=== PATIENT | male | born 1975 | race Caucasian/White ===

== ENCOUNTER 2019-02-08 13:12 | Emergency (ER) | payer OTHER, SELFPAY | END 2019-02-08 14:25 | disposition home or self-care (01) | PROVIDERS: Emergency Provider Emergency Medicine; Family Provider Nurse Practitioner Family; Visit Provider Emergency Medicine | DX: S61.011A Laceration without foreign body of right thumb without damage to nail, initial encounter (principal); W26.8XXA Contact with other sharp object(s), not elsewhere classified, initial encounter; Y92.009 Unspecified place in unspecified non-institutional (private) residence as the place of occurrence of the external cause; Z23 Encounter for immunization; I10 Essential (primary) hypertension | CPT/HCPCS: 12001; 90471; 90715; 96372; 99282; J2001 ==

== ENCOUNTER 2020-04-21 12:00 | Outpatient (CLI) | payer OTHER, SELFPAY | END 2020-04-21 12:01 | disposition home or self-care (01) | LOC: SLEEP 04-22 11:07 | PROVIDERS: Family Provider Nurse Practitioner Family; PCP Nurse Practitioner Family; Visit Provider Nurse Practitioner Family | DX: G47.10 Hypersomnia, unspecified (principal) | CPT/HCPCS: G0399 ==

== ENCOUNTER 2025-01-08 13:55 | Emergency (ER) | payer BC, SELFPAY ==
[2025-01-08 14:00] VITALS: BP 149/108; PULSE 102; RESP 17; TEMP 36.8; O2SAT 98; BMI 32.1
--- NOTE | 2025-01-08 14:01 | XRR_ITS ---
PROCEDURE INFORMATION: Exam: XR Left Wrist Exam date and time: 01/08/2025 2:40 PM Age: 49 years old Clinical indication: Injury or trauma; Fall; Blunt trauma (contusions or hematomas); Wrist; Left TECHNIQUE: Imaging protocol: Radiologic exam of the left wrist. Views: 3 or more views. COMPARISON: No relevant prior studies available. FINDINGS: Bones/joints: Subtle linear lucency through the waist of the scaphoid, questionable for nondisplaced fracture. There is a small osseous density just lateral to this, possibly reflecting small fracture fragment. Joint spaces are preserved. Soft tissues: Unremarkable. XR/XR wrist LT min 3V* [id number] IMPRESSION: Subtle linear lucency through the waist of the scaphoid suspicious for acute nondisplaced fracture. Correlate for point tenderness.
--- NOTE | 2025-01-08 14:01 | CTR_ITS ---
PROCEDURE INFORMATION: Exam: CT Head Without Contrast Exam date and time: 01/08/2025 2:28 PM Age: 49 years old Clinical indication: Injury or trauma; Fall; Blunt trauma (contusions or hematomas) TECHNIQUE: Imaging protocol: Computed tomography of the head without contrast. Radiation optimization: All CT scans at this facility use at least one of these dose optimization techniques: automated exposure control; mA and/or kV adjustment per patient size (includes targeted exams where dose is matched to clinical indication); or iterative reconstruction. COMPARISON: No relevant prior studies available. RADIATION DOSE METRICS: Total DLP (mGy-cm): 1103.48 FINDINGS: Brain: No acute hemorrhage, edema, or mass effect. Cerebral ventricles: No hydrocephalus. Paranasal sinuses: Mild ethmoid sinus mucosal thickening. The remaining paranasal sinuses are clear. Mastoid air cells: Visualized mastoid air cells are well aerated. Bones: No acute calvarial fracture. Soft tissues: Unremarkable. CT/CT head wo con* [id number] IMPRESSION: No acute hemorrhage, edema, or mass effect.
--- NOTE | 2025-01-08 14:01 | XRR_ITS ---
PROCEDURE INFORMATION: Exam: XR Right Hand Exam date and time: 01/08/2025 2:38 PM Age: 49 years old Clinical indication: Injury or trauma; Fall; Blunt trauma (contusions or hematomas); Hand; Right TECHNIQUE: Imaging protocol: Radiologic exam of the right hand. Views: 3 or more views. COMPARISON: No relevant prior studies available. FINDINGS: Bones/joints: No acute displaced fracture or dislocation. Joint spaces are preserved. Soft tissues: Soft tissue lucencies around the proximal 3rd digit, possibly abrasions versus overlapping tissue. XR/XR hand RT min 3V* [id number] IMPRESSION: No acute displaced fracture or dislocation.
--- NOTE | 2025-01-08 14:01 | XRR_ITS ---
PROCEDURE INFORMATION: Exam: XR Right Ribs with PA Chest Exam date and time: 01/08/2025 2:32 PM Age: 49 years old Clinical indication: Injury or trauma; Fall; Rib area; Blunt trauma (contusions or hematomas) TECHNIQUE: Imaging protocol: Radiologic exam of the right ribs with PA chest. Views: 3 views COMPARISON: No relevant prior studies available. FINDINGS: Lungs: Low lung volumes with grossly clear lungs Pleural spaces: No pleural effusion. No pneumothorax. Heart/Mediastinum: Heart size is normal. Bones/joints: No acute displaced rib fracture. XR/XR ribs RT mn 3V w CXR1V [id number] IMPRESSION: No acute displaced rib fracture.
--- NOTE | 2025-01-08 14:03 | ED_ITS ---
Documented by User: Priti Holloway MD 01/08/25 15:24 HPI - Fall General: Chief Complaint: Fall Stated Complaint: fall (10 ft rooftop) Time Seen by Provider: 01/08/25 13:57 Source: patient Mode of arrival: ambulatory Limitations: no limitations History of Present Illness: 49-year-old male states that he was work ing on his chimney and fell off his roof roughly 10 foot just prior to arrival. States he mainly landed on his right side has right rib pain states it also hit his head has a mild headache denies any loss consciousness. Bilateral wrist pain has a laceration roughly 2 cm to his right hand. He is up-to-date on his tetanus he denies any other injuries Related Data Previous Rx's ?Medication ?Instructions ?Recorded hydrocodone 5 mg-acetaminophen 325 1 tab PO Q6H PRN pa in #14 tabs 01/08/25 mg tablet Allergies Allergy/AdvReac Type Severity Reaction Status Date / Time No Known Allergies Allergy Verified 01/08/25 14:11 Physical Exam Const: COMMON NORMALS: no acute distress, patient oriented x3 and healthy appearing HENMT: COMMON NORMALS: normocephalic HEAD & SCALP: normocephalic OTHER: Tenderness right lower scalp Eye: COMMON NORMALS: Equal, round and reactive pupils present and EOMs intact bilaterally PUPIL: Yes Equal, round and reactive pupils present Neck/C-Spine: COMMON NORMALS: full ROM and supple CERVICAL SPINE: No Cervical spine tenderness Chest: COMMONS NORMALS: normal inspection of the chest OTHER: Right lateral chest wall tenderness Resp: COMMON NORMALS: normal respiratory effort, No retractions, No use of accessory muscles and clear to auscultation bilaterally AUSCULTATION: clear to auscultation bilaterally Cardio: COMMON NORMALS: regular rate, regular rhythm and No murmurs present (Cardio) RATE: regular rate RHYTHM: regular rhythm GI: COMMON NORMALS: Normal to inspection, nondistended, normoactive bowel sounds present, Soft to palpation, non-tender and no masses PALPATION: Yes Soft to palpation Extremity: COMMON NORMALS: full ROM NARRATIVE EXTREMITY EXAM: Bilateral wrist tenderness no obvious deformity Neuro: COMMON NORMALS: patient oriented x3, moves all extremities and no focal motor deficits Psych: COMMON NORMALS: mental status grossly normal, Normal thought process present and cooperative THOUGHT PROCESS: Normal thought process present Skin: COMMON NORMALS: no rashes or lesions noted NARRATIVE SKIN EXAM: 2 cm laceration right hand GENERAL SKIN EXAM: no rashes or lesions noted Course Vital Signs: Vital signs: Vital Signs Pulse Rate 81 01/08/25 15:12 Respiratory Rate 17 01/08/25 14:00 Blood Pressure 118/80 01/08/25 15:12 Pulse Oximetry 94 01/08/25 15:12 Oxygen Delivery Me thod Room Air 01/08/25 14:00 MDM - Fall Medical Decision Making Patient presents here after fall from roof. Differential includes rib fractures, pneumothorax, skull fracture, intracranial hemorrhage. Did CT his head showed no signs of skull fracture or hemorrhage. He had no hypoxia here x- ray shows no signs of rib fracture or pneumothorax. Did have a laceration between his middle and ring finger and webspace was repaired here with 3 sutures. X-ray showed a possible scaphoid fracture left wrist had some tenderness will place in a thumb spica and have him follow-up with orthopedic for repeat x-rays he is to have sutures removed in 7 days he had no back or neck pain he is stable for discharge follow-up and return if worsening he understands agrees to plans. Medical Records I reviewed the patient's medical records. Lab Data Radiology Impressions Hand X-Ray 01/08/25 14:01 IMPRESSION: No acute displaced fracture or dislocation. Head CT 01/08/25 14:01 IMPRESSION: No acute hemorrhage, edema, or mass effect. Ribs X-Ray 01/08/25 14:01 IMPRESSION: No acute displaced rib fracture. Wrist X-Ray 01/08/25 14:01 IMPRESSION: Subtle linear lucency through the waist of the scaphoid suspicious for acute nondisplaced fracture. Correlate for point tenderness. All radiology interpretation(s) finalized by discharge Discharge Plan Discharge Patient Disposition: Home Clinical Impression: Fall, Contusion of right chest wall, Closed head injury, Closed fracture of scaphoid of left wrist, Laceration of hand, right Condition: Stable Prescriptions: New hydrocodone-acetaminophen 5-325 mg tablet 1 tab PO Q6H PRN (Reason: pain) Qty: 14 0RF Discharge Orders: Discharge ED (Routine); Ordered 01/08/25 Ordered By: Priti Holloway Referrals: Mar Rose APN [Referring, Family Practice] Cuba Forrest DO [Physician, Orthopedics] - 4-7 days Discharge Diet: Advance as tolerated Discharge Activity: Resume usual activity Patient Instructions: Laceration (ED), Scaphoid Fracture (ED), Opioid Safety Activity Restrictions/Additional Instructions: suture removal in 7 days Print Language: Czech Coding Level of Care Code ED Telecommunications Clerk for Chg Fwd Documented by User: YESSENIA Bonner 01/08/25 15:28 HPI - Fall General: Chief Complaint: Fall Stated Complaint: fall (10 ft rooftop) Time Seen by Provider: 01/08/25 13:57 Related Data Previous Rx's ?Medication ?Instructions ?Recorded hydrocodone 5 mg-acetaminophen 325 1 tab PO Q6H PRN pa in #14 tabs 01/08/25 mg tablet Allergies Allergy/AdvReac Type Severity Reaction Status Date / Time No Known Allergies Allergy Verified 01/08/25 14:11 Procedures Laceration Laceration 1: Site: hand Side (If applicable): right Size (cm): 1.5 Description: linear Depth: simple, single layer Local Anesthetic: lidocaine 1% Amount of anesthesia used (mL): 2.0 Pre-repair: wound explored and irrigated extensively Skin layer closed with: nylon Size (cm): 4-0 Number of sutures: 3 Technique: simple, interrupted Course ED course: Was consulted by Dr. Holloway to repair laceration to patient's right hand near the webbing of his 3rd and 4th digits. Wound was copiously irrigated and repaired as documented. No tendon involvement. Other than laceration repair, I did not actively participate in any portion of patient care. ES Vital Signs: Vital signs: Vital Signs Pulse Rate 81 01/08/25 15:12 Respiratory Rate 17 01/08/25 14:00 Blood Pressure 118/80 01/08/25 15:12 Pulse Oximetry 94 01/08/25 15:12 Oxygen Delivery Me thod Room Air 01/08/25 14:00 MDM - Fall Lab Data Radiology Impressions Hand X-Ray 01/08/25 14:01 IMPRESSION: No acute displaced fracture or dislocation. Head CT 01/08/25 14:01 IMPRESSION: No acute hemorrhage, edema, or mass effect. Ribs X-Ray 01/08/25 14:01 IMPRESSION: No acute displaced rib fracture. Wrist X-Ray 01/08/25 14:01 IMPRESSION: Subtle linear lucency through the waist of the scaphoid suspicious for acute nondisplaced fracture. Correlate for point tenderness. Discharge Plan Discharge Patient Disposition: Home Clinical Impression: Fall, Contusion of right chest wall, Closed head injury, Closed fracture of scaphoid of left wrist, Laceration of hand, right Condition: Stable Prescriptions: New hydrocodone-acetaminophen 5-325 mg tablet 1 tab PO Q6H PRN (Reason: pain) Qty: 14 0RF Discharge Orders: Discharge ED (Routine); Ordered 01/08/25 Ordered By: Priti Holloway Referrals: Mar Rose APN [Referring, Family Practice] Cuba Forrest DO [Physician, Orthopedics] - 4-7 days Discharge Diet: Advance as tolerated Discharge Activity: Resume usual activity Patient Instructions: Laceration (ED), Scaphoid Fracture (ED), Opioid Safety Activity Restrictions/Additional Instructions: suture removal in 7 days Print Language: Czech Coding Level of Care Code ED Telecommunications Clerk for Amanda Griffin
--- OUTSIDE RECORDS SUMMARY | 2025-01-08 14:08 | XMS_ITS | Patient Health Record ---
Author Organization [facility] [employer] Address [address] [place] [address] Care Team Providers Care Peanut Shaker Name Role Phone AFSHIN NEAL Unavailable [phone] Allergies No Known Allergies Reason For Referral No Information Problems Problem Type SNOMED Code ICD Code Onset Dates Problem Status W/U Status Risk Notes Problem Chronic fatigue syndrome (disorder) (55628138) Chronic fatigue, unspecified (R53.82) Active confirmed Plan Of Treatment Pending Test Test Name Order Date ESTRADIOL (4021) 12/02/2020 TESTOSTERONE, TOTAL, MALES (ADULT), [place] ( 873) 12/02/2020 Insurance Providers Payer Name Payer Address Payer Phone Subscriber Number Group Number Insured Name Patient Relationship to Insured Coverage Start Date Coverage End Date [employer] [address] [place] [phone] [id number] Ayaz oPwell Self - patient is the insured Medical (General) History Surgical History Surgery Date(Month/Year) cornea transplant bilat eyes
--- OUTSIDE RECORDS SUMMARY | 2025-01-08 14:08 | XMS_ITS | Data Portability ---
Author Organization [facility], [facility], [facility] Address [address] [facility] [address] [place] [address] Care Team Providers Care Commercial Drafter Name Role Phone WING CUNNINGHAM Primary Care Provider Unavailabl e Assessment Encounter Date Assessment Date Assessment LastModified by Organization Details LastModified Time 11/05/2024 11/05/2024 Document scribed by Sreekanth Figueredo Retail Field Representative. I was present during interview and exam. I have reviewed and agree with above documentation . Dr. Wing Cunningham. [email or web address] Not available 11/05/2024 15:40:51 Plan of Treatment Reminders Order Date Submit Date Provider Last Modified By Organization Details Last Modified Time Details Appointments None recorded. Lab None recorded. Referral None recorded. Procedures diagnostic colonoscopy (PROC) 2024 025 [email or web address] [facility], [address] [place], [address], 09:50:02 Surgeries None recorded. Imaging None recorded. Medication Orders prednisone 20 mg tablet 2022 023 [email or web address] Not available 5 15:29:26 doxycycline hyclate 100 mg capsule 2022 023 [email or web address] Not available 15:29:09 Patient TargetsNo targets recorded. Patient InstructionsNo instructions recorded. Reason for Referral None Reported. Problems Name Problem SNOMED Code Status Onset Date Resolution Date Notes Provider Name and Address Organization Details Recorded Time Chronic sinusitis 26871969 Active 2022 GOLDEN cunningham [facility] 3 13:16:21 Chronic prostatitis 66536997 Active 2022 Wing Cunningham [address], [phone], [facility] 3 15:48:00 Generalized rash 336125169 Active [address] Wing [address], [phone], [facility] 3 15:48:01 Obstructive sleep apnea syndrome 93362824 Active 2022 Wing Cunningham [address], [phone], [facility], [facility]andra[facility]andra[facility]andra 15:48:04 Problem Notes None recorded. Procedures Surgical History Date Name Laterality Status Provider Name and Address Organization Details Recorded Time vasectomy completed GOLDEN MIRZAEL [facility] 09/18/2022 13:17:00 Imaging Results None recorded. Procedure Notes None recorded. Medical Equipment None Reported. Allergies No known drug allergies Medications Name Sig Start Date Stop Date Status Note LastModified by Organization Details LastModified Time doxycycline hyclate 100 mg capsule Take 1 capsule twice a day by oral route for 21 days. 11/05 completed Not Available Not Available Not Available ofloxacin 0.3 % eye drops 09/18 completed Not Available Not Available Not Available prednisone 20 mg tablet Take 1 tablet every day by oral route in the morning for 10 days. 11/05 completed Not Available Not Available Not Available prednisolon e acetate 1 % eye drops,suspe nsion SHAKE LIQUID AND INSTILL 1 DROP IN BOTH EYES TWICE DAILY 11/05 completed Not Available Not Available Not Available doxycycline monohydrate 100 mg capsule 11/05 completed Not Available Not Available Not Available fluticasone propionate 50 mcg/actuati on nasal spray,suspe nsion SHAKE LIQUID AND USE 1 SPRAY IN EACH NOSTRIL TWICE DAILY NEEDED FOR ALLERGIES 09/18 completed Not Available Not Available Not Available diflupredna te 0.05 % eye drops 09/18 completed Not Available Not Available Not Available Vevye 0.1 % eye drops INSTILL 1 DROP IN BOTH EYES TWICE DAILY active Not Available Not Available No t Available Vitals Date Recorded Body height Body mass index (BMI) Body weight Oxygen saturation Heart rate Respiratory rate Body temperature Systolic And Diastolic Provider Name and Address Organization Details Last Updated DateTime 3 175.26 cm 32.8 kg/m2 578291. 51 g 99 % 79 /min 18 /min 97.6 [degF] 148/88 mm[Hg] BOB US [facility] 3 15:29:59 Date Recorded Body weight Oxygen saturation Heart rate Respiratory rate Systolic And Diastolic Provider Name and Address Organization Details Last Updated DateTime 5 20326.9 4 g 96 % 73 /min 18 /min 138/80 mm[Hg] Analy Rubalcava [facility] 5 15:31:33 Social History None recorded. Functional Status Question Answer Note LastModified by Organizat ion Details LastModified Time Do you use any illicit or recreational drugs? No Information not available 09/18/2022 Do you or have you ever used any other forms of tobacco or nicotine? No [email or web address] Information not available 09/18/2022 What is your level of alcohol consumption? None Information not available 09/18/2022 Mental Status None recorded. Family History Nothing Reported. Medical History No medical history recorded. Immunizations Vaccine Type Date Status Note Provider Nam e and Address Organization Details Recorded Time Influenza, split virus, trivalent, preservative 0 completed Not Available [employer] 09/09/2022 02:27:45 Past Encounters Encounter ID Performer Location Encounter Start Date Encounter Closed Date Diagnosis/Indication Diagnosis SNOMED-CT Code Diagnosis ICD10 Code Diagnosis IMO Codes Diagnosis Note [id number] Wing Cunningham DO [facility] ([facility]) [address] [place] [phone] 09/18/2022 14:53:37 09/18/2022 20:20:23 Chronic prostatitis 54740755 N41.1 Patient responded well to 2 weeks of doxycyclin e about 8 months ago. We will give him 3 weeks of doxycyclin e. Counseled on possible need for urology referral and/or long-term antibiotic s. Generalized rash 8924277 06 R21 Chronic. Unclear etiology. We will start prednisone . Return if not improved or returns in a couple weeks. Obstructiv e sleep apnea syndrome 86231998 G47.33 Counseled patient on need to start using his CPAP device again. Wear it at least 6 hours a night every single night. Expect significan t improvemen t in fatigue and daytime sleepiness in the next 3 to 5 weeks. [id number] Wing Cunningham DO [facility] ([facility]) [address] [place] [phone] 11/05/2024 15:15:03 11/12/2024 14:57:39 Melena [id number] K92.1 7672 I have reviewed and discussed colon cancer screening options, including colonoscop y. Discussed risks vs benefits including risk of infection and bleeding, perforatio n, possible need for surgery, reaction to medication s, and sever injury or . We discussed pt requiring sedation and possible general anesthesia . Pt agrees to proceed with Colonoscop y at [facility]. Preliminar y procedure date will be 11/20/24 Health Concerns Section Related Observation LastModified by Organization Detai ls LastModified Time None Recorded Concern Status LastModified by Organization Details LastModified Time None Recorded Advance Directives Directive None Recorded Payers Insurance Date Sequence Insurance Name Policy Number Policy Mejias Covered Member ID Mejias Member ID Guarantor Name 11/17/2024 1 [employer] [id number] Ayaz Powell [id number] Ayaz Powell Notes Date Note Type Note Provider Name and Address Organization Details Recorded Time 3 text/html Skin LesionReported by PatientHPIFor associated symptoms, patient reportslesions spreadingandfatiguebut reportsno fever,no nausea,no vomiting, andno diarrhea. For location, patient reportsabdomen,back,leg, andwhole body. For quality, patient reportsgrowing initially stable, but acceleratingandchanging in color. For severity, patient reportssevere. For duration, patient reports___ months. FatigueReported by PatientHPIFor associated symptoms, patient reportssleep apnea,chest pain (1 occ. 3 weeks ago), andrashbut reportsno depression,no anxiety,no sleep disturbances,no palpitations,no shortness of breath,no dizziness,no headache, andno memory impairment. For quality, patient reportsgeneralized. For severity, patient reportsnormal sleep patterns.ROS as noted in the HPI pt c/o severe fatigue and rash fatigue, started 1-2 months ago, after lunch, no complaints of sleep, sleeping 5-6 hoursNot admits to a 6-year history of obstructive sleep apnea. He has not been wearing his CPAP for a few years now.We performed labs in January 2022 with a normal CBC, CMP, TSH.We treated him for acute prostatitis at that time. His symptoms improved for several months. We utilize doxycycline for 2 weeks.rash started 8-12 months ago, started abx at last visit, no change no improvementrash is splotchy, red, no itching, no pain Wing CunninghamDO [address] [place] [address], [phone], [facility] 09/18/2022 19:06:54 5 text/html ROS as noted in the HPI Pt presents for passing blood in the stools He reports intermittent episodes of bright red blood on tissue after BM for approx 6 months, more frequent the last one month.For the last 3 days he has noted dark red blood with his stool, quite a bit noted. He has had problems with hemorrhoids in the past He has had discomfort with BM's, with the rectal bleeding.He hasn't noticed any lumps or bumps rectally. His stools have been more solid than usual, however denies constipation. Weight has remained stable. No prior colonoscopyNo Fhx Colon Ca. Wing CunninghamDO [address] [place] [address], [phone], [facility], [facility]andra[facility]andraC. 11/11/2024 18:57:06
--- OUTSIDE RECORDS SUMMARY | 2025-01-08 14:08 | XMS_ITS | Continuity of Care Document ---
Author Organization [facility], L.L.CAlejandra, [facility] ([facility]) Address [address] [place] [address] Care Team Providers Care Prints And Drawings Curator Name Role Phone WING CUNNINGHAM Primary Care Provider Unavailabl e Assessment Encounter Date Assessment Date Assessment LastModified by Organization Details LastModified Time 11/05/2024 11/05/2024 Document scribed by Sreekanth Figueredo Fitness Consultant. I was present during interview and exam. I have reviewed and agree with above documentation . Dr. Wing Cunningham. [email or web address] Not available 11/05/2024 15:40:51 Plan of Treatment Reminders Order Date Submit Date Provider Last Modified By Organization Details Last Modified Time Details Appointments None recorded. Lab None recorded. Referral None recorded. Procedures diagnostic colonoscopy (PROC) 2024 025 [email or web address] [facility], [address] , [place], [address], 5 09:50:02 Surgeries None recorded. Imaging None recorded. Medication Orders None recorded. Patient TargetsNo targets recorded. Patient InstructionsNo instructions recorded. Reason for Referral None Reported. Problems Name Problem SNOMED Code Status Onset Date Resolution Date Notes Provider Name and Address Organization Details Recorded Time Chronic sinusitis 32183342 Active 2022 GOLDEN cunningham [facility] 3 13:16:21 Chronic prostatitis 11032335 Active 2022 Wing Cunningham DO [address] [place] [address], [phone], [facility], LAlejandraL.C. 3 15:48:00 Generalized rash 604176159 Active 2022 Wing Cunningham DO [address] [place] [address], [phone], [facility], CelenaCAlejandra 3 15:48:01 Obstructive sleep apnea syndrome 12451035 Active 2022 Wing Cunningham DO [address] [place] [address], [phone], [facility], LAlejandraLAlejandraCAlejandra 3 15:48:04 Problem Notes None recorded. Procedures Surgical History Date Name Laterality Status Provider Name and Address Organization Details Recorded Time vasectomy completed GOLDEN SERNA [employer], Ian 09/18/2022 13:17:00 Imaging Results None recorded. Procedure [...] No t Available Vitals Date Recorded Body weight Oxygen saturation Heart rate Respiratory rate Systolic And Diastolic Provider Name and Address Organization Details Last Updated DateTime 5 74511.9 4 g 96 % 73 /min 18 /min 138/80 mm[Hg] Analy Rubalcava OLIVA [facility], LCecile 5 15:31:33 Social History None recorded. Functional Status Question Answer Note LastModified by Organizat ion Details LastModified Time Do you use any illicit or recreational drugs? No [email or web address] Information not available 09/18/2022 Do you or have you ever used any other forms of tobacco or nicotine? No [email or web address] Information not available 09/18/2022 What is your level of alcohol consumption? None [email or web address] Information not available 09/18/2022 Mental Status None [...] ICD10 Code Diagnosis IMO Codes Diagnosis Note [id number] Wing Cunningham DO [facility] ([facility]) [address] [place] [address] 11/05/2024 15:15:03 11/12/2024 14:57:39 [facility] [id number] K92.1 [id number] I have reviewed and discussed colon cancer screening options, including colonoscop y. Discussed risks vs benefits including risk of infection and bleeding, perforatio n, possible need for surgery, reaction to medication s, and sever injury or . We discussed pt requiring sedation and possible general anesthesia . Pt agrees to proceed with Colonoscop y at [facility]. Preliminar y procedure date will be 11/20/24 Health Concerns Section Related Observation LastModified by Organization Detai ls LastModified Time None Recorded Concern Status LastModified by Organization Details LastModified Time None Recorded Payers Encounter Date Sequence Insurance Name Policy Number Policy Mejias Covered Member ID Mejias Member ID Guarantor Name 11/05/2024 1 [employer] ([employer]) [id number] Ayaz Powell [id number] Notes Date Note Type Note Provider Name and Address Organization Details Recorded Time 11/05/2024 text/html ROS as noted in the HPI [...] No prior colonoscopyNo [facility] Colon Ca. Wing Cunningham, DO [address] [place] [address], [phone], [facility] 11/11/2024 18:57:06
--- OUTSIDE RECORDS SUMMARY | 2025-01-08 14:08 | XMS_ITS | Clinical Summary ---
Author Organization [facility] [address] [facility] [address] Care Team Providers Care [employer]otive [employer] Counter Assistant Name Role Phone Unavailable Primary Care Provider Unavailabl e Medications prednisoLONE acetate (PRED FORTE) 1 % suspension Administer 1 Drop in both eyes every 7 days. If needed 5 mL 4 Active cycloSPORINE (Vevye) 0.1 % Drops Administer 1 Drop in both eyes 2 times daily. 2 mL 2 4 Active Active Problems No known active problems Social History Tobacco Use Types Packs/Day Years Used Date Smoking Tobacco: Never Tobacco Cessation:Counseling Given: Not Answered Sex and Gender Information Value Date Recorded Sex Assigned at Not on file Legal Sex Male 10:53 AM [employer] Gender Identity Not on file Sexual Orientation Not on file Plan of Treatment Health Maintenance Due Date Last Done Comments DTAP/TDAP/TD VACCINES (1 - Tdap) 1995 HEPATITIS B VACCINES (1 of 3 - 19+ 3-dose series) 06/1995 COLORECTAL SCREENING 2021 Colorectal Cancer Screening 2021 FIT-DNA Q 3 years 2021 FIT/FOBT Q 1 year 2021 Flex Sig/CT Colonography Q 5 years 2021 INFLUENZA VACCINE (#1) 2024 Insurance BCBS ROSSANA FERNANDEZ PPO [facility]
[2025-01-08] MEDS: HYDROcodone-acetaminophen 7.5-325 mg Tablet 1 TAB PO (14:57)
[2025-01-08 15:12] VITALS: BP 118/80; PULSE 81; O2SAT 94
--- NOTE | 2025-01-08 15:34 | DCPLANNER ---
messaged ortho for er f/u
== END 2025-01-08 15:18 | disposition home or self-care (01) ==
PROVIDERS: Emergency Provider Emergency Medicine
DX: S20.211A Contusion of right front wall of thorax, initial encounter (principal); S09.8XXA Other specified injuries of head, initial encounter; S62.002A Unspecified fracture of navicular [scaphoid] bone of left wrist, initial encounter for closed fracture; S61.411A Laceration without foreign body of right hand, initial encounter; W13.2XXA Fall from, out of or through roof, initial encounter
CPT/HCPCS: 12001; 70450; 71101; 73110; 73130; 99284; J9999

== ENCOUNTER → 2025-01-13 09:27 | Outpatient (BNVA) | payer BC, SELFPAY | PROVIDERS: Visit Provider Student in an Organized Health Care Education/Training Program | DX: S62.002A Unspecified fracture of navicular [scaphoid] bone of left wrist, initial encounter for closed fracture (principal); W13.2XXA Fall from, out of or through roof, initial encounter | CPT/HCPCS: 73110 ==

== ENCOUNTER 2025-01-13 11:20 | Outpatient (CLI) | payer BC, SELFPAY | END 2025-01-13 11:21 | disposition home or self-care (01) | LOC: SPT 11:21 | PROVIDERS: Visit Provider Student in an Organized Health Care Education/Training Program | DX: Z46.89 Encounter for fitting and adjustment of other specified devices (principal); S62.002D Unspecified fracture of navicular [scaphoid] bone of left wrist, subsequent encounter for fracture with routine healing; X58.XXXD Exposure to other specified factors, subsequent encounter | CPT/HCPCS: 97760; L3984 ==

== ENCOUNTER → 2025-01-28 15:52 | Outpatient (BNVA) | payer BC, SELFPAY | PROVIDERS: Visit Provider Student in an Organized Health Care Education/Training Program | DX: S62.002A Unspecified fracture of navicular [scaphoid] bone of left wrist, initial encounter for closed fracture (principal); X58.XXXA Exposure to other specified factors, initial encounter | CPT/HCPCS: 73110 ==